=== PATIENT | male | born 1980 ===

== ENCOUNTER 2018-09-22 07:53 | Emergency (ER) | payer OTHER ==
[~2018-09-22] VITALS: Ht 185.4 cm; Wt 88.5 kg
== END 2018-09-22 12:24 | disposition home or self-care (01) ==
LOC: ER 07:53
DX: S21.221A Laceration with foreign body of right back wall of thorax without penetration into thoracic cavity, initial encounter (principal); S80.12XA Contusion of left lower leg, initial encounter; S80.11XA Contusion of right lower leg, initial encounter; W18.09XA Striking against other object with subsequent fall, initial encounter; Y93.89 Activity, other specified; Y92.59 Other trade areas as the place of occurrence of the external cause; Y99.8 Other external cause status

== ENCOUNTER 2022-07-27 18:53 | Outpatient (CLI) | payer OTHER | END 2022-07-27 23:00 | disposition home or self-care (01) | LOC: LAB 18:53 | DX: Z20.828 Contact with and (suspected) exposure to other viral communicable diseases (principal); Z20.818 Contact with and (suspected) exposure to other bacterial communicable diseases ==